=== PATIENT | male | born 1935 | race Caucasian/White ===

== ENCOUNTER 2024-04-21 12:19 | Inpatient (IN) | payer OTHER ==
[~2024-04-21] VITALS: Ht 177.8 cm; Wt 81.3 kg
[2024-04-21 12:19] VITALS: BP_SYST 156; PULSE 57; RESP 18; TEMP 97.4; O2SAT 98
[2024-04-21] MEDS ORDERED: iohexoL 350 mgI/mL, 100 ML INFUS..BTL IV ONE (12:35)
[2024-04-21 12:51] LABS: BASOPHILS # (AUTO) 0.1 K/uL (0.0-0.2); BASOPHILS % (AUTO) 0.6 % (0.0-2.0); EOSINOPHILS # (AUTO) 0.6 K/uL (0.0-0.4); EOSINOPHILS % (AUTO) 7.7 % (0.0-4.0); HEMATOCRIT 41.4 % (36-54); HEMOGLOBIN 13.7 g/dL (14.0-18.0); LYMPHOCYTES # (AUTO) 1.5 K/uL (1.0-5.5); LYMPHOCYTES % (AUTO) 18.2 % (20.5-51.5); MEAN CORPUSCULAR HEMOGLOBIN 31 pg (27-31); MEAN CORPUSCULAR HGB CONC 33 % (32-36); MEAN CORPUSCULAR VOLUME 95 fL (79.0-98.0); MONOCYTES # (AUTO) 0.9 K/uL (0.0-1.0); MONOCYTES % (AUTO) 11.5 % (1.7-9.3); PLATELET COUNT (AUTO) 190 K/uL (130-430); RED BLOOD CELL COUNT(AUTO) 4.38 MIL/uL (4.2-6.2); RED CELL DISTRIBUTION WIDTH 13.2 % (9.0-15.0)
[2024-04-21 13:01] LABS: INR 1.2 (0.80-1.20); PROTHROMBIN TIME 12.1 SECS (9.5-12.5)
[2024-04-21 13:07] LABS: ANION GAP 10 (5-15); CALCIUM 8.6 mg/dL (8.4-11.0); CARBON DIOXIDE 28 mmol/L (23-29); CHLORIDE 104 mmol/L (98-107); CHOLESTEROL 108 mg/dL (<200); CREATININE 1.18 mg/dL (0.55-1.30); GLUCOSE 101 mg/dL (74-106); HDL CHOLESTEROL 48 mg/dL (>45); POTASSIUM 4.3 mmol/L (3.5-5.1); SODIUM SERUM 142 mmol/L (136-145); TRIGLYCERIDES 60 mg/dL (30-150); UREA NITROGEN, BLOOD 35 mg/dL (8-21)
[2024-04-21 13:08] LABS: HEMOGLOBIN A1C 5.4 % (<5.7)
[2024-04-21 18:55] VITALS: BP_SYST 145; PULSE 75; RESP 18; TEMP 98.1; O2SAT 100
[2024-04-21 19:58] VITALS: PULSE 69; RESP 18; TEMP 96.6
[2024-04-22] VITALS (7 sets, daily range): BP systolic 129–150; PULSE 67–81; RESP 14–18; TEMP 97.5–98.3; O2SAT 93–100
[2024-04-22 14:41] LABS: BILIRUBIN,URINE NEGATIVE (NEGATIVE); BLOOD, URINE NEGATIVE (NEGATIVE); CLARITY/URINE CLEAR (CLEAR); COLOR,URINE YELLOW (YELLOW); GLUCOSE,URINE NEGATIVE (NEGATIVE); KETONES,URINE TRACE (NEGATIVE); LEUKOCYTE ESTERASE ,URINE NEGATIVE (NEGATIVE); NITRITE, URINE NEGATIVE (NEGATIVE); PROTEIN URINE TRACE (NEGATIVE); UROBILINOGEN,URINE 0.2 (0.2-1.0)
[2024-04-22 14:56] LABS: BARBITURATE, URINE NEGATIVE (NEG <=200); BENZODIAZEPINE, URINE NEGATIVE (NEG <=150); CANNABINOID, URINE NEGATIVE (NEG <=50); COCAINE, URINE NEGATIVE (NEG <=150); METHAMPHETAMINES SCREEN,URINE NEGATIVE (NEG <=500); OPIATE, URINE NEGATIVE (NEG <=100); PHENCYCLIDINE SCREEN,URINE NEGATIVE (NEG <=25); UR TRICYCLIC ANTIDEPRESSANTS NEGATIVE (NEG <=300); URINE AMPHETAMINE NEGATIVE (NEG <=500); URINE METHADONE NEGATIVE (NEG <=200); URINE OXYCODONE SCREEN NEGATIVE (NEG <=100)
[2024-04-22] MEDS ORDERED: SACU1TAB PO (15:52)
[2024-04-22] MEDS ORDERED: APIX5TAB PO (15:52)
[2024-04-22] MEDS ORDERED: ACET-2634 PO (15:52)
[2024-04-22] MEDS ORDERED: ONDANSETRON HCL 4 MG/2 ML VIAL IVP PRN (18:30)
[2024-04-22] MEDS ORDERED: ACETAMINOPHEN 325 MG TABLET PO PRN (18:30)
[2024-04-22] MEDS ORDERED: LORazepam 2 MG/ML VIAL IVP PRN (18:30)
[2024-04-22] MEDS: SACUBITRIL/VALSARTAN 24 MG-26 MG 1 TABLET PO SCH (21:39)
[2024-04-22] MEDS: APIXABAN 2.5 MG TABLET PO SCH (21:41)
[2024-04-22] MEDS: CARVEDILOL 6.25 MG TABLET (COREG) PO SCH (21:42)
[2024-04-22] MEDS: NORMAL SALINE 5 ML DISP.SYRIN IVF SCH (21:44)
[2024-04-23 00:12] VITALS: BP_SYST 150; PULSE 70; RESP 18; TEMP 97.2; O2SAT 99
[2024-04-23 06:47] LABS: BASOPHILS % (AUTO) 0.5 % (0.0-2.0); EOSINOPHILS # (AUTO) 0.6 K/uL (0.0-0.4); EOSINOPHILS % (AUTO) 6.9 % (0.0-4.0); HEMATOCRIT 40.7 % (36-54); HEMOGLOBIN 13.8 g/dL (14.0-18.0); LYMPHOCYTES # (AUTO) 1.4 K/uL (1.0-5.5); LYMPHOCYTES % (AUTO) 15.2 % (20.5-51.5); MEAN CORPUSCULAR HEMOGLOBIN 32 pg (27-31); MEAN CORPUSCULAR HGB CONC 34 % (32-36); MEAN CORPUSCULAR VOLUME 93 fL (79.0-98.0); MONOCYTES # (AUTO) 1.2 K/uL (0.0-1.0); MONOCYTES % (AUTO) 13.8 % (1.7-9.3); NEUTROPHILS # (AUTO) 5.8 K/uL (1.8-7.7); NEUTROPHILS % (AUTO) 63.6 % (40.0-70.0); PLATELET COUNT (AUTO) 174 K/uL (130-430); RED BLOOD CELL COUNT(AUTO) 4.37 MIL/uL (4.2-6.2); RED CELL DISTRIBUTION WIDTH 13.3 % (9.0-15.0); WHITE BLOOD COUNT (AUTO) 9.1 K/uL (4.8-10.8)
[2024-04-23 07:48] VITALS: BP_SYST 137; PULSE 76; RESP 20; TEMP 98; O2SAT 99
[2024-04-23 08:00] VITALS: O2SAT 99
[2024-04-23 08:22] LABS: ALANINE AMINOTRANSFERASE 13 U/L (12-78); ALBUMIN 2.9 g/dL (3.4-4.8); ANION GAP 8 (5-15); ASPARTATE AMINOTRANSFERASE 18 U/L (10-37); CALCIUM 8.4 mg/dL (8.4-11.0); CARBON DIOXIDE 29 mmol/L (23-29); CHLORIDE 105 mmol/L (98-107); CREATININE 1.21 mg/dL (0.55-1.30); GLUCOSE 77 mg/dL (74-106); POTASSIUM 3.9 mmol/L (3.5-5.1); SODIUM SERUM 142 mmol/L (136-145); TOTAL BILIRUBIN 0.7 mg/dL (0.0-1.0); TOTAL PROTEIN, SERUM 6.2 g/dL (6.4-8.3); UREA NITROGEN, BLOOD 26 mg/dL (8-21)
[2024-04-23] MEDS: ASPIRIN 81 MG TABLET(ECOTRIN) PO SCH (09:03)
[2024-04-23] MEDS: ATORVASTATIN 20 MG TABLET PO SCH (09:03)
[2024-04-23] MEDS ORDERED: COR6.25 PO (10:58)
[2024-04-23] MEDS ORDERED: LIP20 PO (10:58)
[2024-04-23] MEDS ORDERED: ASPI-1393 PO (10:58)
[2024-04-23 12:27] VITALS: BP_SYST 125; PULSE 71; RESP 18; TEMP 99; O2SAT 98
[2024-04-23 16:19] VITALS: BP_SYST 114; PULSE 65; RESP 18; TEMP 97.8; O2SAT 96
[2024-04-23 17:42] VITALS: BP_SYST 110; PULSE 60; RESP 16; TEMP 97.2; O2SAT 96
== END 2024-04-23 18:51 | DRG 68 ==
LOC: SED 12:19 → STU 16:38
PROVIDERS: ADMIT Preventive Medicine Preventive Medicine/Occupational Environmental Medicine; ATTEND Preventive Medicine Preventive Medicine/Occupational Environmental Medicine
DX: I65.23 Occlusion and stenosis of bilateral carotid arteries (principal); E44.0 Moderate protein-calorie malnutrition; E11.9 Type 2 diabetes mellitus without complications; E78.5 Hyperlipidemia, unspecified; E88.09 Other disorders of plasma-protein metabolism, not elsewhere classified; I10 Essential (primary) hypertension; I25.10 Atherosclerotic heart disease of native coronary artery without angina pectoris; I48.91 Unspecified atrial fibrillation; I25.5 Ischemic cardiomyopathy; Z88.5 Allergy status to narcotic agent; Z86.73 Personal history of transient ischemic attack (TIA), and cerebral infarction without residual deficits; Z79.01 Long term (current) use of anticoagulants; Z51.89 Encounter for other specified aftercare; Z68.25 Body mass index [BMI] 25.0-25.9, adult
CPT/HCPCS: 36415; 70450; 70496; 70498; 70551; 71045; 80048; 80053; 80061; 80307; 81001; 81003; 82948; 83037; 84484; 85025; 85610; 85730; 86886; 86900; 86901; 93005; 93306; 97116-GP; 97530-GP; 99285; G0378; Q9967

== ENCOUNTER 2024-05-09 23:23 | Inpatient (IN) | payer OTHER ==
[~2024-05-09] VITALS: Ht 180.3 cm; Wt 90.3 kg
[~2024-05-09 23:23] MED LIST: ACET-2634 PO; APIX5TAB PO; ASPI-1393 PO; COR6.25 PO; LIP20 PO; SACU1TAB PO
[2024-05-09 23:33] VITALS: BP_SYST 153; PULSE 93; RESP 18; TEMP 95.9; O2SAT 99
[2024-05-10 02:33] LABS: BASOPHILS # (AUTO) 0.1 K/uL (0.0-0.2); BASOPHILS % (AUTO) 0.7 % (0.0-2.0); EOSINOPHILS # (AUTO) 0.6 K/uL (0.0-0.4); EOSINOPHILS % (AUTO) 6.5 % (0.0-4.0); HEMATOCRIT 35.8 % (36-54); LYMPHOCYTES # (AUTO) 1.2 K/uL (1.0-5.5); LYMPHOCYTES % (AUTO) 12.5 % (20.5-51.5); MEAN CORPUSCULAR HEMOGLOBIN 31 pg (27-31); MEAN CORPUSCULAR HGB CONC 34 % (32-36); MEAN CORPUSCULAR VOLUME 92 fL (79.0-98.0); MONOCYTES # (AUTO) 1.3 K/uL (0.0-1.0); MONOCYTES % (AUTO) 12.6 % (1.7-9.3); NEUTROPHILS # (AUTO) 6.7 K/uL (1.8-7.7); NEUTROPHILS % (AUTO) 67.7 % (40.0-70.0); PLATELET COUNT (AUTO) 194 K/uL (130-430); RED BLOOD CELL COUNT(AUTO) 3.88 MIL/uL (4.2-6.2); RED CELL DISTRIBUTION WIDTH 13.4 % (9.0-15.0); WHITE BLOOD COUNT (AUTO) 9.9 K/uL (4.8-10.8)
[2024-05-10 02:42] LABS: ERYTHROCYTE SEDIMENTATION RATE 43 MM/HR (0-15)
[2024-05-10 02:46] LABS: ALANINE AMINOTRANSFERASE 13 U/L (12-78); ALBUMIN 2.7 g/dL (3.4-4.8); ANION GAP 14 (5-15); ASPARTATE AMINOTRANSFERASE 16 U/L (10-37); BILIRUBIN,DIRECT 0.2 mg/dL (0.0-0.3); CARBON DIOXIDE 23 mmol/L (23-29); CHLORIDE 105 mmol/L (98-107); CREATININE 4.15 mg/dL (0.55-1.30); GLUCOSE 92 mg/dL (74-106); PHOSPHORUS 8.1 mg/dL (2.7-4.5); POTASSIUM 5.3 mmol/L (3.5-5.1); SODIUM SERUM 142 mmol/L (136-145); TOTAL BILIRUBIN 0.4 mg/dL (0.0-1.0); TOTAL PROTEIN, SERUM 6.3 g/dL (6.4-8.3)
[2024-05-10 02:55] LABS: UREA NITROGEN, BLOOD 104 mg/dL (8-21)
[2024-05-10 03:04] LABS: BILIRUBIN,URINE NEGATIVE (NEGATIVE); BLOOD, URINE 3+ (NEGATIVE); CLARITY/URINE SL CLOUDY (CLEAR); COLOR,URINE BROWN (YELLOW); GLUCOSE,URINE NEGATIVE (NEGATIVE); KETONES,URINE NEGATIVE (NEGATIVE); LEUKOCYTE ESTERASE ,URINE NEGATIVE (NEGATIVE); NITRITE, URINE NEGATIVE (NEGATIVE); PH,URINE 6.5 (5.0-8.0); PROTEIN URINE 2+ (NEGATIVE); UROBILINOGEN,URINE 0.2 (0.2-1.0)
[2024-05-10 03:22] LABS: BACTERIA,URINE RARE /HPF (None Seen); WBC,URINE 0-3 /HPF (0-3)
[2024-05-10] MEDS: NACL 0.9% 1,000 ML IV ONE (03:29)
[2024-05-10] MEDS ORDERED: DOCU-144 PO (03:38)
[2024-05-10] MEDS ORDERED: LYR50 PO (03:38)
[2024-05-10] MEDS: 0.45% NACL 1,000 ML IV SCH (06:19)
[2024-05-10] MEDS: PREGABALIN 25 MG CAPSULE (LYRICA) PO SCH (17:59)
[2024-05-10] MEDS: DOCUSATE SODIUM 100 MG/10 ML UDC PO SCH (21:00)
[2024-05-10] MEDS: SACUBITRIL/VALSARTAN 24 MG-26 MG 1 TABLET PO SCH (21:00)
[2024-05-10] MEDS: CARVEDILOL 6.25 MG TABLET (COREG) PO SCH (21:00)
[2024-05-10] MEDS: ACETAMINOPHEN 500 MG TABLET PO SCH (21:00)
[2024-05-10 21:14] VITALS: BP_SYST 129; PULSE 77; RESP 19; TEMP 96.6
[2024-05-11 00:21] VITALS: BP_SYST 142; PULSE 88; RESP 20; TEMP 97.7; O2SAT 100
[2024-05-11 04:15] VITALS: BP_SYST 137; PULSE 78; RESP 20; TEMP 97.5; O2SAT 100
[2024-05-11 08:00] VITALS: BP_SYST 123; PULSE 82; RESP 22; TEMP 97.2; O2SAT 99
[2024-05-11 09:01] LABS: BASOPHILS # (AUTO) 0.1 K/uL (0.0-0.2); BASOPHILS % (AUTO) 0.8 % (0.0-2.0); EOSINOPHILS # (AUTO) 0.4 K/uL (0.0-0.4); HEMATOCRIT 37.9 % (36-54); HEMOGLOBIN 12.5 g/dL (14.0-18.0); LYMPHOCYTES # (AUTO) 1.2 K/uL (1.0-5.5); LYMPHOCYTES % (AUTO) 16.3 % (20.5-51.5); MEAN CORPUSCULAR HEMOGLOBIN 31 pg (27-31); MEAN CORPUSCULAR HGB CONC 33 % (32-36); MEAN CORPUSCULAR VOLUME 94 fL (79.0-98.0); MONOCYTES # (AUTO) 0.7 K/uL (0.0-1.0); MONOCYTES % (AUTO) 10.1 % (1.7-9.3); NEUTROPHILS # (AUTO) 4.7 K/uL (1.8-7.7); NEUTROPHILS % (AUTO) 66.8 % (40.0-70.0); PLATELET COUNT (AUTO) 179 K/uL (130-430); RED BLOOD CELL COUNT(AUTO) 4.02 MIL/uL (4.2-6.2); RED CELL DISTRIBUTION WIDTH 12.9 % (9.0-15.0)
[2024-05-11 09:02] LABS: WHITE BLOOD COUNT (AUTO) 7.1 K/uL (4.8-10.8)
[2024-05-11 09:06] LABS: ANION GAP 9 (5-15); CALCIUM 8.3 mg/dL (8.4-11.0); CARBON DIOXIDE 24 mmol/L (23-29); CHLORIDE 110 mmol/L (98-107); GLUCOSE 87 mg/dL (74-106); POTASSIUM 4.5 mmol/L (3.5-5.1); SODIUM SERUM 143 mmol/L (136-145); UREA NITROGEN, BLOOD 77 mg/dL (8-21)
[2024-05-11] MEDS: ASPIRIN 81 MG TABLET(ECOTRIN) PO SCH (10:20)
[2024-05-11] MEDS: TAMSULOSIN HCL 0.4 MG CAP PO SCH (10:20)
[2024-05-11 12:00] VITALS: BP_SYST 108; PULSE 78; RESP 12; TEMP 97.6; O2SAT 100
[2024-05-11] MEDS: MAGNESIUM CITRATE 300 ML ORAL SOLUTION PO ONE (12:17)
[2024-05-11 16:00] VITALS: BP_SYST 100; PULSE 81; RESP 12; TEMP 97.5; O2SAT 100
[2024-05-11 20:00] VITALS: BP_SYST 133; PULSE 40; RESP 20; TEMP 97.5; O2SAT 97
[2024-05-12] VITALS (7 sets, daily range): BP systolic 116–136; PULSE 60–83; RESP 16–20; TEMP 96.5–97.9; O2SAT 97–100
[2024-05-13 01:35] VITALS: BP_SYST 117; PULSE 70; RESP 17; TEMP 97.5; O2SAT 99
[2024-05-13 05:55] LABS: BASOPHILS # (AUTO) 0.1 K/uL (0.0-0.2); EOSINOPHILS # (AUTO) 0.7 K/uL (0.0-0.4); HEMATOCRIT 37.5 % (36-54); HEMOGLOBIN 12.8 g/dL (14.0-18.0); LYMPHOCYTES # (AUTO) 1.4 K/uL (1.0-5.5); LYMPHOCYTES % (AUTO) 18.4 % (20.5-51.5); MEAN CORPUSCULAR HEMOGLOBIN 32 pg (27-31); MEAN CORPUSCULAR HGB CONC 34 % (32-36); MEAN CORPUSCULAR VOLUME 92 fL (79.0-98.0); MONOCYTES # (AUTO) 0.9 K/uL (0.0-1.0); MONOCYTES % (AUTO) 11.1 % (1.7-9.3); NEUTROPHILS # (AUTO) 4.7 K/uL (1.8-7.7); NEUTROPHILS % (AUTO) 60.5 % (40.0-70.0); PLATELET COUNT (AUTO) 208 K/uL (130-430); RED BLOOD CELL COUNT(AUTO) 4.06 MIL/uL (4.2-6.2); RED CELL DISTRIBUTION WIDTH 13.1 % (9.0-15.0); WHITE BLOOD COUNT (AUTO) 7.8 K/uL (4.8-10.8)
[2024-05-13 06:04] LABS: ANION GAP 9 (5-15); CARBON DIOXIDE 28 mmol/L (23-29); CHLORIDE 109 mmol/L (98-107); CREATININE 1.71 mg/dL (0.55-1.30); GLUCOSE 80 mg/dL (74-106); POTASSIUM 3.7 mmol/L (3.5-5.1); SODIUM SERUM 146 mmol/L (136-145); UREA NITROGEN, BLOOD 46 mg/dL (8-21)
[2024-05-13 08:00] VITALS: BP_SYST 132; PULSE 73; RESP 20; TEMP 97.9; O2SAT 100
[2024-05-13 11:04] VITALS: BP_SYST 106; PULSE 80; RESP 16; TEMP 97.7; O2SAT 97
[2024-05-13 17:05] VITALS: BP_SYST 117; PULSE 52; RESP 17; TEMP 97.5; O2SAT 100
[2024-05-13 17:27] VITALS: BP_SYST 117; PULSE 52; RESP 17; TEMP 97.5; O2SAT 100
[2024-05-13 20:10] VITALS: BP_SYST 129; PULSE 81; RESP 18; TEMP 97; O2SAT 98
== END 2024-05-13 20:14 | DRG 699 ==
LOC: SED 23:23 → SMU 05-10 04:12
PROVIDERS: ADMIT Specialist; ATTEND Specialist
PROC: 0T9B70Z Drainage of Bladder with Drainage Device, Via Natural or Artificial Opening (ICD-10-PCS; principal; 2024-05-10)
DX: N31.9 Neuromuscular dysfunction of bladder, unspecified (principal); G45.9 Transient cerebral ischemic attack, unspecified; N17.9 Acute kidney failure, unspecified; N13.39 Other hydronephrosis; I12.0 Hypertensive chronic kidney disease with stage 5 chronic kidney disease or end stage renal disease; N18.5 Chronic kidney disease, stage 5; E11.42 Type 2 diabetes mellitus with diabetic polyneuropathy; I25.10 Atherosclerotic heart disease of native coronary artery without angina pectoris; E11.22 Type 2 diabetes mellitus with diabetic chronic kidney disease; I48.91 Unspecified atrial fibrillation; N28.1 Cyst of kidney, acquired; E78.5 Hyperlipidemia, unspecified; Z86.73 Personal history of transient ischemic attack (TIA), and cerebral infarction without residual deficits; Z79.01 Long term (current) use of anticoagulants; Z79.899 Other long term (current) drug therapy; Z88.8 Allergy status to other drugs, medicaments and biological substances
CPT/HCPCS: 36415; 70450-TC; 71045; 74150-TC; 76770; 80048; 80076; 81000; 81001; 81015; 83605; 83735; 83880; 84100; 84484; 85025; 85651; 87040; 87081; 93005; 93880; 97110-GP; 97116-GP; 97530-GP; 99291; J7030

== ENCOUNTER 2024-05-18 13:26 | Inpatient (IN) | payer OTHER ==
[~2024-05-18] VITALS: Ht 182.9 cm; Wt 117.9 kg
[2024-05-18 13:26] VITALS: BP_SYST 96; PULSE 82; RESP 17; TEMP 97; O2SAT 97
[~2024-05-18 13:26] MED LIST changes: +CEFTRIAXONE SOD 1 GM/ D5W 50 ML IV SCH; +DOCU-144 PO; -LIP20 PO; +LYR50 PO
[2024-05-18] MEDS: clonazePAM 0.5 MG TABLET PO ONE (13:57)
[2024-05-18 14:01] LABS: BASOPHILS # (AUTO) 0.1 K/uL (0.0-0.2); BASOPHILS % (AUTO) 0.4 % (0.0-2.0); EOSINOPHILS # (AUTO) 0.1 K/uL (0.0-0.4); EOSINOPHILS % (AUTO) 0.5 % (0.0-4.0); HEMATOCRIT 37.8 % (36-54); HEMOGLOBIN 12.3 g/dL (14.0-18.0); LYMPHOCYTES # (AUTO) 0.6 K/uL (1.0-5.5); LYMPHOCYTES % (AUTO) 3.3 % (20.5-51.5); MEAN CORPUSCULAR HEMOGLOBIN 31 pg (27-31); MEAN CORPUSCULAR HGB CONC 33 % (32-36); MEAN CORPUSCULAR VOLUME 94 fL (79.0-98.0); MONOCYTES # (AUTO) 1.4 K/uL (0.0-1.0); MONOCYTES % (AUTO) 8.3 % (1.7-9.3); NEUTROPHILS # (AUTO) 14.9 K/uL (1.8-7.7); NEUTROPHILS % (AUTO) 87.5 % (40.0-70.0); PLATELET COUNT (AUTO) 196 K/uL (130-430); RED BLOOD CELL COUNT(AUTO) 4.03 MIL/uL (4.2-6.2); RED CELL DISTRIBUTION WIDTH 12.7 % (9.0-15.0); WHITE BLOOD COUNT (AUTO) 17.1 K/uL (4.8-10.8)
[2024-05-18 14:12] LABS: INR 1.2 (0.80-1.20)
[2024-05-18 14:12] LABS: BILIRUBIN,URINE NEGATIVE (NEGATIVE); BLOOD, URINE 3+ (NEGATIVE); CLARITY/URINE SL CLOUDY (CLEAR); COLOR,URINE YELLOW (YELLOW); GLUCOSE,URINE NEGATIVE (NEGATIVE); KETONES,URINE NEGATIVE (NEGATIVE); LEUKOCYTE ESTERASE ,URINE 2+ (NEGATIVE); NITRITE, URINE NEGATIVE (NEGATIVE); PROTEIN URINE 2+ (NEGATIVE); UROBILINOGEN,URINE 0.2 (0.2-1.0)
[2024-05-18 14:16] LABS: ALANINE AMINOTRANSFERASE 7 U/L (12-78); ALBUMIN 2.7 g/dL (3.4-4.8); ANION GAP 9 (5-15); ASPARTATE AMINOTRANSFERASE 11 U/L (10-37); BILIRUBIN,DIRECT 0.2 mg/dL (0.0-0.3); CALCIUM 8.3 mg/dL (8.4-11.0); CARBON DIOXIDE 26 mmol/L (23-29); CHLORIDE 106 mmol/L (98-107); CREATINE KINASE, TOTAL 48 U/L (39-308); CREATININE 1.39 mg/dL (0.55-1.30); GLUCOSE 125 mg/dL (74-106); POTASSIUM 3.5 mmol/L (3.5-5.1); SODIUM SERUM 141 mmol/L (136-145); TOTAL BILIRUBIN 0.6 mg/dL (0.0-1.0); UREA NITROGEN, BLOOD 27 mg/dL (8-21)
[2024-05-18 14:25] LABS: RBC,URINE 20-50 /HPF (0-3)
[2024-05-18 14:26] LABS: BACTERIA,URINE FEW /HPF (None Seen); WBC,URINE >100 /HPF (0-3)
[2024-05-18] MEDS ORDERED: SENN8.6T19 PO (15:14)
[2024-05-18] MEDS ORDERED: ZINC136C2 TP (15:14)
[2024-05-18] MEDS ORDERED: ACET325T53 PO (15:14)
[2024-05-18] MEDS ORDERED: TAMS-11 PO (15:14)
[2024-05-18] MEDS ORDERED: ENULOSE PO (15:14)
[2024-05-18] MEDS ORDERED: ACET-2634 PO (15:14)
[2024-05-18] MEDS ORDERED: cefTRIAXone 1 GM VIAL ONE (15:41)
[2024-05-18] MEDS: NACL 0.9% 1,000 ML IV ONE ×2 (15:49→17:33)
[2024-05-18] MEDS: cefTRIAXone 1 GM in D5W 50 ML IV ONE (15:49)
[2024-05-18] MEDS ORDERED: cefTRIAXone 1 GM IVPB PREMIX 50 ML IV SCH (17:00)
[2024-05-18] MEDS ORDERED: ONDANSETRON HCL 4 MG/2 ML VIAL IVP PRN (17:00)
[2024-05-18] MEDS ORDERED: LORazepam 2 MG/ML VIAL IVP PRN (17:00)
[2024-05-18] MEDS ORDERED: ACETAMINOPHEN 325 MG TABLET PO PRN (17:15)
[2024-05-18] MEDS ORDERED: LACTULOSE 20 GM/30 ML UDC PO PRN (17:45)
[2024-05-18] MEDS: CARVEDILOL 6.25 MG TABLET (COREG) PO SCH (21:00)
[2024-05-18] MEDS: PREGABALIN 25 MG CAPSULE (LYRICA) PO SCH (21:00)
[2024-05-18] MEDS: SENNOSIDES 8.6 MG TABLET PO SCH (21:00)
[2024-05-18] MEDS: APIXABAN 2.5 MG TABLET PO SCH (21:00)
[2024-05-18] MEDS: TAMSULOSIN HCL 0.4 MG CAP PO SCH (21:00)
[2024-05-18] MEDS: DOCUSATE SODIUM 100 MG/10 ML UDC PO SCH (21:00)
[2024-05-18] MEDS: SACUBITRIL/VALSARTAN 24 MG-26 MG 1 TABLET PO SCH (21:00)
[2024-05-18 23:22] VITALS: BP_SYST 133; PULSE 82; RESP 18; TEMP 97.3; O2SAT 97
[2024-05-18] MEDS: ASPIRIN 81 MG TABLET(ECOTRIN) PO SCH (23:46)
[2024-05-18] MEDS: NORMAL SALINE 5 ML DISP.SYRIN IVF SCH (23:48)
[2024-05-19 00:41] VITALS: BP_SYST 126; PULSE 84; RESP 18; TEMP 97.5; O2SAT 92
[2024-05-19 07:38] LABS: BASOPHILS % (AUTO) 0.1 % (0.0-2.0); EOSINOPHILS % (AUTO) 0.2 % (0.0-4.0); HEMATOCRIT 35.5 % (36-54); HEMOGLOBIN 11.8 g/dL (14.0-18.0); LYMPHOCYTES # (AUTO) 0.8 K/uL (1.0-5.5); LYMPHOCYTES % (AUTO) 4.3 % (20.5-51.5); MEAN CORPUSCULAR HEMOGLOBIN 31 pg (27-31); MEAN CORPUSCULAR HGB CONC 33 % (32-36); MEAN CORPUSCULAR VOLUME 92 fL (79.0-98.0); MONOCYTES # (AUTO) 1.6 K/uL (0.0-1.0); MONOCYTES % (AUTO) 8.5 % (1.7-9.3); NEUTROPHILS # (AUTO) 16.8 K/uL (1.8-7.7); PLATELET COUNT (AUTO) 190 K/uL (130-430); RED BLOOD CELL COUNT(AUTO) 3.87 MIL/uL (4.2-6.2); RED CELL DISTRIBUTION WIDTH 13.2 % (9.0-15.0); WHITE BLOOD COUNT (AUTO) 19.3 K/uL (4.8-10.8)
[2024-05-19 08:00] VITALS: BP_SYST 111; PULSE 93; RESP 18; TEMP 97.8; O2SAT 99
[2024-05-19 08:15] VITALS: BP_SYST 111; PULSE 93; RESP 18; TEMP 97.8; O2SAT 99
[2024-05-19 08:23] LABS: ALANINE AMINOTRANSFERASE 5 U/L (12-78); ALBUMIN 2.5 g/dL (3.4-4.8); ANION GAP 11 (5-15); ASPARTATE AMINOTRANSFERASE 12 U/L (10-37); CALCIUM 8.3 mg/dL (8.4-11.0); CARBON DIOXIDE 23 mmol/L (23-29); CHLORIDE 110 mmol/L (98-107); CREATININE 1.29 mg/dL (0.55-1.30); GLUCOSE 101 mg/dL (74-106); PHOSPHORUS 2.5 mg/dL (2.7-4.5); POTASSIUM 3.4 mmol/L (3.5-5.1); SODIUM SERUM 144 mmol/L (136-145); TOTAL BILIRUBIN 0.6 mg/dL (0.0-1.0); UREA NITROGEN, BLOOD 27 mg/dL (8-21)
[2024-05-19 10:57] LABS: NEUTROPHILS % (AUTO) 86.9 % (40.0-70.0)
[2024-05-19 12:50] VITALS: BP_SYST 123; PULSE 80; RESP 20; TEMP 98.5; O2SAT 99
[2024-05-19] MEDS ORDERED: CEFTRIAXONE SOD 1 GM/ D5W 50 ML IV SCH (13:00)
[2024-05-19] MEDS: CEFEPIME 2 GM in D5W 100 ML IV SCH (13:14)
[2024-05-19] MEDS: metroNIDAZOLE 250 mg/NS 50 ML IV SCH (14:45)
[2024-05-19 16:43] VITALS: BP_SYST 115; PULSE 82; RESP 20; TEMP 98.2; O2SAT 99
[2024-05-19 20:04] VITALS: BP_SYST 135; PULSE 75; RESP 20; TEMP 99; O2SAT 99
[2024-05-20 00:23] VITALS: BP_SYST 140; PULSE 84; RESP 19; TEMP 98.6; O2SAT 98
[2024-05-20 08:00] VITALS: BP_SYST 106; PULSE 84; RESP 18; TEMP 97.5; O2SAT 97
[2024-05-20 08:15] VITALS: O2SAT 97
[2024-05-20 11:10] VITALS: BP_SYST 134; PULSE 82; RESP 16; TEMP 98.7; O2SAT 100
[2024-05-20 11:44] LABS: BASOPHILS % (AUTO) 0.2 % (0.0-2.0); EOSINOPHILS # (AUTO) 0.3 K/uL (0.0-0.4); EOSINOPHILS % (AUTO) 1.7 % (0.0-4.0); HEMATOCRIT 34.9 % (36-54); HEMOGLOBIN 11.6 g/dL (14.0-18.0); LYMPHOCYTES % (AUTO) 6.4 % (20.5-51.5); MEAN CORPUSCULAR HEMOGLOBIN 31 pg (27-31); MEAN CORPUSCULAR HGB CONC 33 % (32-36); MEAN CORPUSCULAR VOLUME 92 fL (79.0-98.0); MONOCYTES # (AUTO) 1.6 K/uL (0.0-1.0); MONOCYTES % (AUTO) 9.9 % (1.7-9.3); NEUTROPHILS # (AUTO) 12.9 K/uL (1.8-7.7); NEUTROPHILS % (AUTO) 81.8 % (40.0-70.0); PLATELET COUNT (AUTO) 180 K/uL (130-430); RED CELL DISTRIBUTION WIDTH 13.3 % (9.0-15.0); WHITE BLOOD COUNT (AUTO) 15.7 K/uL (4.8-10.8)
[2024-05-20 15:40] VITALS: BP_SYST 109; PULSE 85; RESP 16; TEMP 97.7; O2SAT 99
[2024-05-20] MEDS: CIPROFLOXACIN HCL 500 MG TABLET PO ONE (16:36)
[2024-05-20 20:30] VITALS: BP_SYST 124; PULSE 85; RESP 18; TEMP 98.5; O2SAT 95
[2024-05-20] MEDS: CIPROFLOXACIN HCL 500 MG TABLET PO SCH (21:12)
[2024-05-20 21:49] LABS: BILIRUBIN,URINE NEGATIVE (NEGATIVE); BLOOD, URINE 3+ (NEGATIVE); COLOR,URINE YELLOW (YELLOW); GLUCOSE,URINE NEGATIVE (NEGATIVE); KETONES,URINE NEGATIVE (NEGATIVE); LEUKOCYTE ESTERASE ,URINE 1+ (NEGATIVE); NITRITE, URINE NEGATIVE (NEGATIVE); PROTEIN URINE NEGATIVE (NEGATIVE); UROBILINOGEN,URINE 0.2 (0.2-1.0)
[2024-05-20 22:24] LABS: CLARITY/URINE SLIGHTLY HAZY (CLEAR)
[2024-05-20 22:32] LABS: BACTERIA,URINE FEW /HPF (None Seen); MUCUS,URINE 2+ /LPF (None Seen); RBC,URINE 20-50 /HPF (0-3)
[2024-05-21] VITALS: BP_SYST 112; PULSE 87; RESP 18; TEMP 97.9; O2SAT 99
[2024-05-21 07:45] VITALS: BP_SYST 110; PULSE 64; RESP 16; TEMP 97.8; O2SAT 99
[2024-05-21 08:19] LABS: ANION GAP 9 (5-15); CALCIUM 8.1 mg/dL (8.4-11.0); CARBON DIOXIDE 25 mmol/L (23-29); CHLORIDE 106 mmol/L (98-107); CREATININE 1.18 mg/dL (0.55-1.30); GLUCOSE 100 mg/dL (74-106); POTASSIUM 3.7 mmol/L (3.5-5.1); SODIUM SERUM 140 mmol/L (136-145); UREA NITROGEN, BLOOD 27 mg/dL (8-21)
[2024-05-21 08:46] LABS: BASOPHILS % (AUTO) 0.4 % (0.0-2.0); EOSINOPHILS # (AUTO) 0.4 K/uL (0.0-0.4); EOSINOPHILS % (AUTO) 3.4 % (0.0-4.0); HEMATOCRIT 35.5 % (36-54); HEMOGLOBIN 11.8 g/dL (14.0-18.0); LYMPHOCYTES % (AUTO) 9.4 % (20.5-51.5); MEAN CORPUSCULAR HEMOGLOBIN 31 pg (27-31); MEAN CORPUSCULAR HGB CONC 33 % (32-36); MEAN CORPUSCULAR VOLUME 93 fL (79.0-98.0); MONOCYTES # (AUTO) 1.3 K/uL (0.0-1.0); MONOCYTES % (AUTO) 11.7 % (1.7-9.3); NEUTROPHILS % (AUTO) 75.1 % (40.0-70.0); PLATELET COUNT (AUTO) 192 K/uL (130-430); RED BLOOD CELL COUNT(AUTO) 3.82 MIL/uL (4.2-6.2); RED CELL DISTRIBUTION WIDTH 13.1 % (9.0-15.0); WHITE BLOOD COUNT (AUTO) 10.7 K/uL (4.8-10.8)
[2024-05-21] MEDS: ACETAMINOPHEN 325 MG TABLET PO PRN (10:15)
[2024-05-21] MEDS ORDERED: CIPR-260 PO (10:16)
[2024-05-21 12:47] VITALS: BP_SYST 112; PULSE 86; RESP 18; TEMP 98.2; O2SAT 100
[2024-05-21 13:13] VITALS: BP_SYST 107; PULSE 79; RESP 18; TEMP 98.7; O2SAT 98
[2024-05-21 16:46] VITALS: BP_SYST 107; PULSE 79; RESP 18; TEMP 98.7; O2SAT 98
[2024-05-21 19:34] VITALS: O2SAT 97
== END 2024-05-21 20:15 | DRG 872 ==
LOC: SED 13:26 → STU 15:22 → SMU 05-21 10:00
PROVIDERS: ADMIT Specialist; ATTEND Specialist
DX: A41.9 Sepsis, unspecified organism (principal); N17.9 Acute kidney failure, unspecified; N39.0 Urinary tract infection, site not specified; N31.8 Other neuromuscular dysfunction of bladder; N41.8 Other inflammatory diseases of prostate; N18.9 Chronic kidney disease, unspecified; I10 Essential (primary) hypertension; M24.562 Contracture, left knee; M24.561 Contracture, right knee; Z88.5 Allergy status to narcotic agent
CPT/HCPCS: 36415; 71045; 80048; 80053; 80076; 81000; 81001; 81015; 82550; 83605; 83735; 84100; 84484; 85025; 85610; 85730; 87040; 87081; 87086; 87186; 93005; 97110-GP; 97116-GP; 97530-GP; 99285; G0378; J0692; J0696; J3490; J7030; J7050; J7060